=== PATIENT | female | born 2000 | race Hispanic/Latino ===

== ENCOUNTER → 2025-07-29 | Emergency (ER) | payer MEDICAID ==
[~2025-07-29] VITALS: Ht 157.5 cm; Wt 79.4 kg
[~2025-07-29] MED LIST: DOXY1TAB8 PO; ONDA-243 PO
--- NOTE | 2025-07-29 22:12 | NUR ---
PT CARE ASSUMED AT THIS TIME
[2025-07-29 22:15] LABS: APPEARANCE,URINE CLOUDY (CLEAR); GLUCOSE, URINE (UA) NEGATIVE (NEGATIVE); LEUKOCYTE ESTERASE ,URINE NEGATIVE Leu/uL (NEGATIVE); NITRATE,URINE NEGATIVE (NEGATIVE); OCCULT BLOOD,URINE NEGATIVE (NEGATIVE)
[2025-07-29 22:17] LABS: ADD UA MICROSCOPIC YES
[2025-07-29 22:18] LABS: SQUAMOUS EPITHELIAL CELL,UR MOD /HPF (0-2)
[2025-07-29 22:25] LABS: IMMATURE GRANULOCYTE ABSOLUTE 0.02 K/uL (0-1); NUCLEATED RED BLOOD CELLS 0.0 % (0.0-0.19); PLATELET COUNT (AUTO) 215 K/uL (130-400); RED BLOOD CELL COUNT(AUTO) 4.46 MIL/uL (4.00-5.50); RED CELL DISTRIBUTION WIDTH 12.7 % (11.0-15.5); WHITE BLOOD COUNT (AUTO) 7.5 K/uL (4.8-10.8)
[2025-07-29 22:33] LABS: CREATININE 0.6 mg/dL (0.5-1.0); GLOMERULAR FILTR. RATE CALC 128.0 mL/min (>90); GLUCOSE,RANDOM 95.0 mg/dL (70-105); SODIUM SERUM 140.0 mmol/L (136-145); UREA NITROGEN, BLOOD 9.0 mg/dL (7-18)
[2025-07-29] MEDS: LACTATED RINGERS 1000ML IV STA (22:43)
[2025-07-29 22:59] LABS: HCG,QUANTITATIVE 73862.0 mIU/mL (0-5)
--- NOTE | 2025-07-29 23:35 | ERN ---
General Chief Complaint: OB<20 weeks gest. Stated Complaint: NAUSEA, VOMITING 14 WEEKS Time Seen by MD: 21:09 Source: patient History of Present Illness Initial Comments 25-year-old healthy female who has 1st has been complicated by hyperemesis gravidarum. Allergies: Coded Allergies: No Known Drug Allergies (Unverified Allergy, Unknown, 07/29/25) Past Medical History Past Medical History: Hypertension Past Surgical History: Other Surgical History Other: R KNEE SURGERY 3 YEARS AGO Female( History) : 1 Constitutional: (-) chills, (-) diaphoresis, (-) fever, (-) malaise, (-) weakness, (-) other documentation EENTM: (-) eye pain, (-) blurred vision, (-) tearing, (-) double vision, (-) ear pain, (-) ear discharge, (-) nose pain, (-) nose congestion, (-) throat pain, (-) Throat swelling, (-) mouth pain, (-) tooth pain, (-) mouth swelling, (-) other documentation Respiratory: (-) cough, (-) orthopnea, (-) short of breath, (-) stridor, (-) wheezing, (-) other documentation Cardiovascular: (-) chest pain, (-) edema, (-) palpitations, (-) syncope, (-) dyspnea on exertion, (-) other documentation Gastrointestinal/Abdominal: (-) diarrhea, (-) abdominal pain, (-) abdominal distention, (-) constipation, (-) rectal bleeding, (-) dark stool/melena, (-) other documentation Genitourinary: (-) vaginal discharge, (-) vaginal bleeding, (-) dysuria, (-) frequency, (-) hematuria, (-) pain, (-) other documentation Musculoskeletal: (-) Neck pain, (-) back pain, (-) Flank Pain, (-) joint pain, (-) joint swelling, (-) muscle pain, (-) muscle stiffness, (-) gout, (-) other documentation Physical Exam General Appearance: (+) mild distress Orientation: (+) alert, (+) oriented x 3 Head/Face Trauma: No Eye: bilateral eye normal inspection, bilateral eye PERRL, bilateral eye EOMI Ear, Nose, Throat: (+) hearing grossly normal, (+) normal ENT inspection Neck: (+) normal inspection, (+) supple Respiratory: (+) chest non-tender, (+) lungs clear, (+) well ventilated Heart: (+) regular, (+) no gallop Vascular: (+) no edema Gastrointestinal: (+) soft, (+) non-tender, (+) bowel sound present Results Laboratory and Microbiology Lab and Micro Result Laboratory Tests Test 07/29/25 22:04 07/29/25 22:21 Urine Color YELLOW (YELLOW) Urine Appearance CLOUDY (CLEAR) H Urine pH 5.5 (5.0-8.0) Urine Specific Nenzel 1.035 (1.001-1.031) Urine Protein 50 mg/dL (NEGATIVE) H Urine Glucose (UA) NEGATIVE mg/dL (NEGATIVE) Urine Ketones 150 mg/dL (NEGATIVE) H Urine Occult Blood NEGATIVE (NEGATIVE) Urine Nitrate NEGATIVE (NEGATIVE) Urine Bilirubin NEGATIVE mg/dL (NEGATIVE) Urine Urobilinogen 0.2 mg/dL (0.2-1.0) Urine Leukocyte Esterase NEGATIVE Yamini/uL Urine RBC 2-5 /HPF (0-1) H Urine WBC 2-5 /HPF (0-1) H Urine Squamous Epithelial Cells MOD /HPF (0-2) Urine Bacteria RARE /HPF (None Seen) White Blood Count 7.5 K/uL (4.8-10.8) Red Blood Count 4.46 MIL/uL (4.00-5.50) Hemoglobin 12.8 g/dL (12.0-16.0) Hematocrit 36.9 % (36-48) Mean Corpuscular Volume 82.7 fL (79-99) Mean Corpuscular Hemoglobin 28.7 pg (27.0-33.0) Mean Corpuscular Hemoglobin Concent 34.7 g/dL (32.0-36.0) Red Cell Distribution Width 12.7 % (11.0-15.5) Platelet Count 215 K/uL (130-400) Mean Platelet Volume 10.5 fL (7.5-10.5) Immature Granulocyte % (Auto) 0.3 % (0-1) Neutrophils (%) (Auto) 83.3 % (40.0-77.0) H Lymphocytes (%) (Auto) 9.9 % (21.0-51.0) L Monocytes (%) (Auto) 6.4 % (3.0-13.0) Eosinophils (%) (Auto) 0.0 % (0.0-8.0) Basophils (%) (Auto) 0.1 % (0.0-5.0) Neutrophils # (Auto) 6.2 K/uL (1.8-7.7) Lymphocytes # (Auto) 0.7 K/uL (1.0-4.8) L Monocytes # (Auto) 0.5 K/uL (0.1-1.0) Eosinophils # (Auto) 0.00 K/uL (0.00-0.70) Basophils # (Auto) 0.01 K/uL (0.00-0.20) Absolute Immature Granulocyte (auto 0.02 K/uL (0-1) Nucleated Red Blood Cells 0.0 % (0.0-0.19) Sodium Level 140 mmol/L (136-145) Potassium Level 3.8 mmol/L (3.5-5.1) Chloride Level 102 mmol/L (101-111) Carbon Dioxide Level 23 mmol/L (21-32) Blood Urea Nitrogen 9 mg/dL (7-18) Creatinine 0.6 mg/dL (0.5-1.0) Glomerular Filtration Rate Calc 128 mL/min (>90) Random Glucose 95 mg/dL (70-105) Total Calcium 9.3 mg/dL (8.5-10.1) Magnesium Level 2.00 mg/dL (1.80-2.40) Human Chorionic Gonadotropin, Quant 39946 mIU/mL (0-5) H MDM Hyperemesis gravidarum. I will start IV fluids IV Zofran and routine labs. Patient's labs come back showing a healthy consistent with patient's expected age of her baby. Normal white count UTI shows an extremely concentrated urine but no evidence of a urinary tract infection. Patient feels better with the Zofran in the fluid. I will discharge her home after giving her 2nd dose of Zofran and after she has completed a L of fluid. Prescription for Zofran was written for. ED Course Orders Procedure Category Date Status Time Basic Metabolic Panel LAB 07/29/25 Complete 21:54 Cbc With Differential LAB 07/29/25 In Process 21:54 Urinalysis Profile LAB 07/29/25 Complete 21:54 Magnesium LAB 07/29/25 Complete 21:54 Lactated Ringers PHA 07/29/25 Complete 1000ml (Lactated 21:54 Ondansetron 4mg Inj PHA 07/29/25 Complete (Zofran 4mg Inj) 22:00 Hcg,Quantitative LAB 07/29/25 Complete 21:54 Current Medications Medications (Trade) Dose Ordered Sig/Kathie Route PRN Reason Start Time Stop Time Status Last Admin Dose Admin Lactated Ringer's (Lactated Ringers 1000ml) 1,000 ml BOLUS STAT IV 07/29/25 21:54 07/29/25 22:39 DC 07/29/25 22:43 Ondansetron HCl (zoFRAN 4MG INJ) 4 mg ONCE ONCE IVP 07/29/25 22:00 07/29/25 22:39 DC 07/29/25 22:43 Vital Signs Date Time Temp Pulse Resp B/P (MAP) Pulse Ox O2 Delivery O2 Flow Rate FiO2 07/29/25 22:28 98.1 65 17 146/98 99 Room Air* 0 21 07/29/25 21:07 98.1 91 18 148/104 99 Room Air 0 DX & DISP Disposition: Discharge Departure Impression: Primary Impression: Hyperemesis gravidarum Additional Impression: Hyperemesis gravidarum to 22 weeks gestation, carbohydrate depletion Condition: Stable Scripts Doxylamine Succinate/Vit B6 (Doxylamine-Pyridoxine 10-10 mg) 10 Mg-10 Mg Tablet.dr 1 EACH PO ACDINNER, #30 TAB Prov: MACARIO LEVI MD 07/29/25 Ondansetron (Ondansetron Odt) 4 Mg Tab.rapdis 1 TAB PO Q6HPRN PRN for nausea/vomiting for 4 Days, #16 TAB 0 Refills Prov: MACARIO LEVI MD 07/29/25 Additional Instructions: The Zofran seems to have helped your symptoms. Drinking lots of fluid we will also help. For reasons that I do not understand when the human body is dehydrated it starts throwing up. Drink enough fluid each day so that your urine runs clear at least once a day. Please return if your unable to stay hydrated. MACARIO LEVI MD Jul 29, 2025 23:35
[2025-07-29 23:40] VITALS: BP 142/87; PULSE 67; RESP 17; TEMP 98.1; O2SAT 99
== END ==
LOC: EDH 21:05
DX: O21.0 Mild hyperemesis gravidarum (principal); O10.912 Unspecified pre-existing hypertension complicating pregnancy, second trimester; Z3A.22 22 weeks gestation of pregnancy
CPT/HCPCS: 99283; 96374; 96361; 83735; 80048; 84702; 85025; 81001; 36415; J7120; J2405